=== PATIENT | female | born 1955 | race Caucasian/White ===

== ENCOUNTER 2019-04-27 08:41 | Emergency (ER) | payer OTHER ==
[~2019-04-27] VITALS: Ht 162.6 cm; Wt 68.9 kg
[2019-04-27 08:58] VITALS: BP 148/86
[2019-04-27] MEDS ORDERED: MUPI22OI2 TP (09:10)
[2019-04-27] MEDS ORDERED: DOXY100T PO (09:10)
--- NOTE | 2019-04-27 09:11 | PHYS DOC ---
Past Medical History Past Medical History: No Pertinent History Adult General Chief Complaint Chief Complaint: INSECT BITE HPI HPI Patient is a 63-year-old female who presents to the emergency department for evaluation. About 2 weeks ago, she pulled a tick off her left upper medial thigh, and states that she has had some redness, and a little firm nodule, at the site of the bite. She has had mild fatigue, but no other systemic symptoms, no arthralgias, myalgias, fevers or chills. She states that because of the persistent symptoms, she decided she would want to get it checked out. There are no alleviating, or exacerbating factors to her symptoms. Review of Systems Review of Systems Constitutional: Denies fever or chills [] Respiratory: Denies cough or shortness of breath [] GI: Denies abdominal pain, nausea, vomiting, bloody stools or diarrhea [] Musculoskeletal: Denies back pain or joint pain [] Integument: Denies rash or skin lesions, except as noted in the history of present illness. [] Neurologic: Denies headache, focal weakness or sensory changes [] Physical Exam Physical Exam PHYSICAL EXAM: HEENT: Atruamatic NECK: Supple, normal ROM, non-tender. CARDIAC: Regular Rate and Rhythm LUNGS: Clear Bilaterally EXTREMITIES: There is a small, 1 cm erythematous nodule with a small ulceration in the center, on the left upper medial thigh, the area is very mildly tender to palpation. There is no fluctuance exam evidence of abscess. There is no evidence of erythema migrans, or other rashes noted. The remainder the extremities are unremarkable. EKG EKG [] Radiology/Procedures Radiology/Procedures [] Dragon Disclaimer Dragon Disclaimer This electronic medical record was generated, in whole or in part, using a voice recognition dictation system. Departure Departure Impression: Primary Impression: Tick bite Disposition: 01 HOME, SELF-CARE Condition: STABLE Referrals: UNKNOWN PCP NAME (PCP) Patient Instructions: Mccurtain Tick Bite, Wood Tick Bite Additional Instructions: Follow-up with your primary care provider for further evaluation, if symptoms persist or worsen Scripts Mupirocin (MUPIROCIN OINTMENT) 22 Gm Oint...g. 1 ROLAN TP TID for WOUND CARE, #1 TUBE Prov: CHAU BIRD MD 04/27/19 Doxycycline Hyclate (DOXYCYCLINE HYCLATE) 100 Mg Tablet 1 TAB PO BID, #14 TAB Prov: CHAU BIRD MD 04/27/19 CHAU BIRD MD Apr 27, 2019 09:11
== END 2019-04-27 10:01 | disposition home or self-care (01) ==
LOC: ER 08:41
DX: S70.362A Insect bite (nonvenomous), left thigh, initial encounter (principal); L08.9 Local infection of the skin and subcutaneous tissue, unspecified; W57.XXXA Bitten or stung by nonvenomous insect and other nonvenomous arthropods, initial encounter; Y93.89 Activity, other specified; Y92.89 Other specified places as the place of occurrence of the external cause; Y99.8 Other external cause status
CPT/HCPCS: 99283